=== PATIENT | female | born 1970 ===

== ENCOUNTER 2023-07-30 10:53 | Day surgery (SDC) | payer BC ==
[~2023-07-30] VITALS: Ht 160 cm; Wt 79.5 kg
[2023-07-30 12:49] VITALS: BP 110/62
--- NOTE | 2023-07-30 12:51 | NUR ---
07/30/23 1251 Dot Bingham IV DC'D, CATH INTACT. PT TOLERATED WELL. COBAN/GAUZE IN PLACE
== END 2023-07-30 12:51 | disposition home or self-care (01) ==
LOC: ORSCSDS 10:53
PROVIDERS: Internal Medicine Gastroenterology
PROC: 0DBH8ZX Excision of Cecum, Via Natural or Artificial Opening Endoscopic, Diagnostic (ICD-10-PCS; principal; 2023-07-30 12:15)
DX: Z12.11 Encounter for screening for malignant neoplasm of colon (principal); K63.5 Polyp of colon; K57.30 Diverticulosis of large intestine without perforation or abscess without bleeding; Z68.31 Body mass index [BMI] 31.0-31.9, adult; Z79.899 Other long term (current) drug therapy
CPT/HCPCS: 88305; J2704; J7120